=== PATIENT | female | born 1940 | race Caucasian/White ===

== ENCOUNTER 2016-12-25 16:13 | Emergency (ER) | payer MEDICARE, MEDICAID ==
[~2016-12-25 16:13] MED LIST: ACTIGALL300 MG PO; ALBUTEROL S2.5 MG/.5 IN; BROVANA15 MCG IN; CARDIZEM CD120 M1 PO; CARTIA XT120 MG/24 PO; COUMADIN2 MG PO; COUMADIN3 MG PO; DETROL LA4 MG PO; FERRETTS325 MG PO; FIRST-VANCOM25 MG/ML PO; FLEXERIL PO; FLOVENT HFA110 MCG IN; GABA PO; GABAPENTIN100 MG PO; GRALISE300 MG PO; HYDROCO/APAP1 TA9 PO; HYDROXYCHLOR200 M1 PO; KEFLEX500 M1 PO; LASIX 20 MG20 MG/TAB PO; LEVOTHYROXIN50 MCG PO; LOSARTAN POT50 MG PO; MECLIZINE25 MG PO; MELOXICAM7.5 MG PO; METO25TAB PO; MYRBETRIQ25 MG PO; OMEPRAZOLE20 M2 PO; PROAIR HFA IN; SORINE80 MG PO; TRAMADOL HCL50 MG PO; ULTRAM50 M1 PO; VITAMIN D PO; VITAMIN D2000 UNIT PO; WARFARIN2 MG PO; XARELTO20 MG PO
== END 2016-12-25 16:25 | disposition left against medical advice (07) ==
LOC: ED 16:13 → LWOBS 16:25
DX: Z91.19 Patient's noncompliance with other medical treatment and regimen (principal)

== ENCOUNTER 2017-02-17 09:47 | Emergency (ER) | payer MEDICARE, MEDICAID ==
[~2017-02-17] VITALS: Ht 152.4 cm; Wt 45.5 kg
[2017-02-17] MEDS ORDERED: GABAPENTIN100 MG PO (10:10)
[2017-02-17 10:28] LABS: HEMATOCRIT 37.5 % (37.0-47.0); HEMOGLOBIN 12.5 g/dl (12.0-16.0); IMMATURE GRANULOCYTES 0.4 % (0.0-1.0); MEAN CELL VOLUME 92.8 fL CALC (80.0-100.0); MEAN CORPUSCULAR HGB 30.9 pG CALC (26.0-32.0); MEAN CORPUSCULAR HGB CONC 33.3 g/L CALC (32.0-36.0); NEUT# 8.54 thou/uL (2.00-7.15); RED BLOOD COUNT 4.04 mill/uL (4.20-5.60); RED CELL DISTRI WIDTH 14.3 % (11.5-15.5)
[2017-02-17] MEDS ORDERED: ACTIGALL300 MG PO (10:33)
[2017-02-17] MEDS ORDERED: LASIX 20 MG20 MG/TAB PO (10:34)
[2017-02-17] MEDS ORDERED: METO25TAB PO (10:34)
[2017-02-17] MEDS ORDERED: TRAMADOL HCL50 MG PO (10:35)
[2017-02-17 12:07] LABS: URINE BILIRUBIN - DIPSTICK NEGATIVE (NEGATIVE); URINE BLOOD DIPSTICK NEGATIVE (NEGATIVE); URINE COLOR YELLOW; URINE GLUCOSE - DIPSTICK NEGATIVE (NEGATIVE); URINE KETONE NEGATIVE (NEGATIVE); URINE PROTEIN - DIPSTICK NEGATIVE (NEG-TRACE); URINE UROBILINOGEN - DIPSTICK 0.2 E.U./dL (0.2)
[2017-02-17 12:13] LABS: URINE CLARITY CLOUDY; URINE LEUK ESTERASE MODERATE (NEGATIVE); URINE NITRITE - DIPSTICK POSITIVE (Negative)
[2017-02-17 12:27] LABS: URINE BACTERIA MANY hpf; URINE SQUAMOUS EPITHELIAL CELL FEW EPI/hpf (0-FEW); URINE WBC TNTC WBC/hpf (0-5)
[2017-02-17 16:04] VITALS: BP 168/77
[2017-02-17] MEDS ORDERED: MACROBID100 MG PO (16:10)
== END 2017-02-17 16:27 | disposition home or self-care (01) ==
LOC: ED 09:47
PROVIDERS: Emergency Medicine
DX: S39.012A Strain of muscle, fascia and tendon of lower back, initial encounter (principal); I48.91 Unspecified atrial fibrillation; J44.9 Chronic obstructive pulmonary disease, unspecified; J45.909 Unspecified asthma, uncomplicated; I10 Essential (primary) hypertension; H91.90 Unspecified hearing loss, unspecified ear; N39.0 Urinary tract infection, site not specified; R42 Dizziness and giddiness; B96.20 Unspecified Escherichia coli [E. coli] as the cause of diseases classified elsewhere; W05.0XXA Fall from non-moving wheelchair, initial encounter

== ENCOUNTER 2017-06-12 13:27 | Emergency (ER) | payer MEDICARE, MEDICAID ==
[~2017-06-12] VITALS: Ht 152.4 cm; Wt 38.0 kg
[~2017-06-12 13:27] MED LIST changes: +MACROBID100 MG PO
[2017-06-12] MEDS ORDERED: MECLIZINE25 MG PO (13:54)
[2017-06-12] MEDS ORDERED: NORCO1 TA1 PO (13:55)
[2017-06-12] MEDS ORDERED: PHILLIPS COLON HEALT PO (13:55)
[2017-06-12] MEDS ORDERED: MULTIVITAMI1 PO (13:57)
[2017-06-12] MEDS ORDERED: VITAMIN D5000 UNIT PO (13:57)
[2017-06-12 17:12] VITALS: BP 171/74
== END 2017-06-12 17:25 | disposition home or self-care (01) ==
LOC: ED 13:27
PROC: 0HQ0XZZ Repair Scalp Skin, External Approach (ICD-10-PCS; principal; 2017-06-12)
DX: S01.01XA Laceration without foreign body of scalp, initial encounter (principal); M25.511 Pain in right shoulder; H91.93 Unspecified hearing loss, bilateral; I48.91 Unspecified atrial fibrillation; J44.9 Chronic obstructive pulmonary disease, unspecified; I10 Essential (primary) hypertension; B94.8 Sequelae of other specified infectious and parasitic diseases; W18.39XA Other fall on same level, initial encounter; Y93.9 Activity, unspecified; Y92.009 Unspecified place in unspecified non-institutional (private) residence as the place of occurrence of the external cause